=== PATIENT | male | born 1945 | race Caucasian/White ===

== ENCOUNTER 2017-07-01 10:56 | Emergency (ER) | payer MEDICARE ==
[~2017-07-01] VITALS: Ht 182.9 cm; Wt 82.0 kg
[2017-07-01] MEDS ORDERED: ASPI81CH CHEW (11:10)
[2017-07-01] MEDS ORDERED: SIMV20TA PO (11:10)
[2017-07-01] MEDS ORDERED: METF500T PO (11:10)
[2017-07-01] MEDS ORDERED: LISI10TA3 PO (11:10)
[2017-07-01 11:11] VITALS: BP 151/87; PULSE 100; RESP 16; TEMP 98.2; O2SAT 98
--- NOTE | 2017-07-01 11:29 | PD ---
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 Patient states she's been diagnosed with PVCs in the past but he felt that his heart was racing a long and decided to stop today and check his pulse which was in the 140s. He took beta blockers prescribed by a associate trainer which is [place] for [place]Cs and he stated the symptom limited him down but he decided to come in and be seen anyways. Patient states that he has had some neck fullness during this episode which is currently resolved. Symptoms started just prior to arrival. He also took 5 baby aspirin prior to arrival. Does not have a history of atrial fibrillation, he had an echocardiogram and a stress test a year and a half ago which was normal. Denies any acute chest pain. Denies any nausea vomiting. PFSH Past Medical History Narrative Medical Hypercholesterol, hypertension, diabetes Diabetes: No (TAKES METFORMIN) Past Surgical History Narrative Surgical Tonsillectomy, laminectomy Social History Tobacco Use: No Allergies-Medications (Allergen,Severity, Reaction): Coded Allergies: ibuprofen (Verified Allergy, Mild, Rash, 07/01/17) Reported Meds & Prescriptions Reported Meds & Active Scripts Active Reported Aspirin 81 Mg Chew 81 Mg CHEW DAILY Metformin (Metformin HCl) 500 Mg Tab 500 Mg PO DAILY With a meal Simvastatin 20 Mg Tab 20 Mg PO DAILY Lisinopril 10 Mg Tab 10 Mg PO DAILY Review of Systems Except as stated in HPI: all other systems reviewed are Neg Physical Exam Narrative GENERAL: Well-developed well-nourished no obvious distress SKIN: Focused skin assessment warm/dry. HEAD: Atraumatic. Normocephalic. EYES: Pupils equal and round. No scleral icterus. No injection or drainage. ENT: No nasal bleeding or discharge. Mucous membranes pink and moist. NECK: Trachea midline. No JVD. CARDIOVASCULAR: Regular rate and rhythm 2+ bilateral equal pulses in all 4 extremity's.. No murmur appreciated. RESPIRATORY: No accessory muscle use. Clear to auscultation. Breath sounds equal bilaterally. GASTROINTESTINAL: Abdomen soft, non-tender, nondistended. Hepatic and splenic margins not palpable. MUSCULOSKELETAL: No obvious deformities. No clubbing. No cyanosis. No edema. NEUROLOGICAL: Awake and alert. No obvious cranial nerve deficits. Motor grossly within normal limits. Normal speech. PSYCHIATRIC: Appropriate mood and affect; insight and judgment normal. Data Data Last Documented VS Vital Signs Date Time Temp Pulse Resp B/P (MAP) Pulse Ox O2 Delivery O2 Flow Rate FiO2 07/01/17 14:07 07/01/17 13:48 60 16 98 Room Air 07/01/17 11:11 98.2 Orders Orders Ckmb (Isoenzyme) Profile (07/01/17 11:28) Complete Blood Count With Diff (07/01/17 11:28) Comprehensive Metabolic Panel (07/01/17 11:28) Magnesium (Mg) (07/01/17 11:28) Prothrombin Time / Inr (Pt) (07/01/17 11:28) Act Partial Throm Time (Ptt) (07/01/17 11:28) Troponin I (07/01/17 11:28) Chest, Single Ap (07/01/17 11:28) Ecg Monitoring (07/01/17 11:28) Iv Access Insert/Monitor (07/01/17 11:28) Oximetry (07/01/17 11:28) Oxygen Administration (07/01/17 11:28) Sodium Chloride 0.9% Flush (Ns Flush) (07/01/17 11:30) CKMB (07/01/17 11:30) CKMB% (07/01/17 11:30) Troponin I (07/01/17 13:01) Ckmb (Isoenzyme) Profile (07/01/17 13:01) Ed Discharge Order (07/01/17 13:55) Electrocardiogram (07/01/17 11:05) Labs Laboratory Tests Test 07/01/17 11:30 07/01/17 13:07 White Blood Count 5.6 TH/MM3 Red Blood Count 5.32 MIL/MM3 Hemoglobin 16.3 GM/DL Hematocrit 48.1 % Mean Corpuscular Volume 90.5 FL Mean Corpuscular Hemoglobin 30.6 PG Mean Corpuscular Hemoglobin Concent 33.8 % Red Cell Distribution Width 13.3 % Platelet Count 103 TH/MM3 Mean Platelet Volume 9.1 FL Neutrophils (%) (Auto) 58.6 % Lymphocytes (%) (Auto) 27.7 % Monocytes (%) (Auto) 10.9 % Eosinophils (%) (Auto) 1.9 % Basophils (%) (Auto) 0.9 % Neutrophils # (Auto) 3.3 TH/MM3 Lymphocytes # (Auto) 1.5 TH/MM3 Monocytes # (Auto) 0.6 TH/MM3 Eosinophils # (Auto) 0.1 TH/MM3 Basophils # (Auto) 0.1 TH/MM3 CBC Comment DIFF FINAL Differential Comment Prothrombin Time 10.3 SEC Prothromb Time International Ratio 0.9 RATIO Activated Partial Thromboplast Time 24.9 SEC Blood Urea Nitrogen 25 MG/DL Creatinine 1.40 MG/DL Random Glucose 104 MG/DL Total Protein 7.0 GM/DL Albumin 3.8 GM/DL Calcium Level 9.1 MG/DL Magnesium Level 2.4 MG/DL Alkaline Phosphatase 65 U/L Aspartate Amino Transf (AST/SGOT) 22 U/L Alanine Aminotransferase (ALT/SGPT) 29 U/L Total Bilirubin 0.4 MG/DL Sodium Level 141 MEQ/L Potassium Level 4.0 MEQ/L Chloride Level 106 MEQ/L Carbon Dioxide Level 28.5 MEQ/L Anion Gap 7 MEQ/L Estimat Glomerular Filtration Rate 50 ML/MIN Total Creatine Kinase 222 U/L 195 U/L Creatine Kinase MB 4.4 NG/ML Troponin I LESS THAN 0.02 NG/ML LESS THAN 0.02 NG/ML MDM Medical Decision Making Medical Screen Exam Complete: Yes Emergency Medical Condition: Yes Interpretation(s) EKG shows atrial fibrillation with an overall rate of 88, normal axis normal R- wave progression. No concerning ST segment changes. This an abnormal rhythm EKG otherwise non-ischemic. Differential Diagnosis Atrial fibrillation, arrhythmia, palpitations, ACS. Narrative Course patient roomed emergency department, EKG was performed in triage prior to me seeing him showing atrial fibrillation. Bedtime I've arrived in the room patient is now sinus rhythm at a rate of 60-70. He appears well and in no distress. Basic labs ordered. Patient's symptoms started about 945 this morning, for that reason 2 sets of cardiac enzymes were sent in the emergency department, both were negative. I discussed with the patient that given his new onset atrial fibrillation which is now controlled and has spontaneous he converted to sinus rhythm he needs consideration for repeat stress test. The patient states that he would like to follow-up with his own associate trainer and has been able to call him over the phone and arrange for a follow-up on Wednesday. I discussed with the patient that there is some risk for missing ACS in him and recommended very close follow-up and he was offered admission to the hospital but stated he would like to go home. He will continue taking 2 baby aspirin a day, metoprolol as needed, lisinopril as needed. Discussed also needs to consider admission for anticoagulation given his chads score is 2. He states he would like to go home and discussed this with his associate trainer first. I think all this is reasonable. I discussed all the risks of a dresser's cardiac event and thromboembolic event given atrial fibrillation he verbalized understanding and agreement and wishes for discharge. Diagnosis Primary Impression: New onset a-fib Additional Impressions: Atrial fibrillation Qualified Codes: I48.91 - Unspecified atrial fibrillation Palpitations Disposition: 01 DISCHARGE HOME Condition: Stable Igor Gomez MD Jul 01, 2017 11:29
[2017-07-01] MEDS ORDERED: SODIUM CHLORIDE 0.9% FLUSH 10 ML FLUSH IVF PRN (11:30)
[2017-07-01 11:32] VITALS: RESP 16; O2SAT 98
[2017-07-01 11:39] VITALS: BP 112/73; PULSE 64; RESP 18; O2SAT 98
[2017-07-01 11:52] LABS: AUTOMATED NEUTROPHIL # 3.3 TH/MM3 (1.8-7.7); BASOPHIL # 0.1 TH/MM3 (0-0.2); BASOPHIL % 0.9 % (0.0-2.0); EOSINOPHIL # 0.1 TH/MM3 (0-0.4); EOSINOPHIL % 1.9 % (0.0-4.0); HEMATOCRIT 48.1 % (39.0-51.0); HEMO FLAGS DIFF FINAL; LYMPH % 27.7 % (9.0-44.0); LYMPHOCYTE # 1.5 TH/MM3 (1.0-4.8); MEAN CELL VOLUME 90.5 FL (80.0-100.0); MEAN CORPUSCULAR HEMOGLOBIN 30.6 PG (27.0-34.0); MEAN CORPUSCULAR HGB CONC 33.8 % (32.0-36.0); MONO % 10.9 % (0.0-8.0); NEUT % 58.6 % (16.0-70.0); PLATELET COUNT 103 TH/MM3 (150-450); RED BLOOD COUNT 5.32 MIL/MM3 (4.50-5.90); RED CELL DISTRIBUTION WIDTH 13.3 % (11.6-17.2); WHITE BLOOD COUNT 5.6 TH/MM3 (4.0-11.0)
[2017-07-01 12:03] LABS: CHLORIDE 106 MEQ/L (98-107); SODIUM (NA) 141 MEQ/L (136-145)
[2017-07-01 12:04] LABS: APTT (PATIENT) 24.9 SEC (24.3-30.1); INTERNATIONAL NORMALIZED RATIO 0.9 RATIO; PROTHROMBIN TIME - PATIENT 10.3 SEC (9.8-11.6)
[2017-07-01 12:07] LABS: ANION GAP 7 MEQ/L (5-15); BICARBONATE 28.5 MEQ/L (21.0-32.0); BLOOD UREA NITROGEN 25 MG/DL (7-18); MAGNESIUM 2.4 MG/DL (1.5-2.5)
[2017-07-01 12:10] LABS: ALT (GPT) 29 U/L (12-78); AST (GOT) 22 U/L (15-37); GLOMERULAR FILTRATION RATE 50 ML/MIN (>89)
[2017-07-01 12:12] LABS: TOTAL BILIRUBIN ADULT 0.4 MG/DL (0.2-1.0)
[2017-07-01 12:13] LABS: ALKALINE PHOSPHATASE 65 U/L (45-117); CREATINE KINASE 222 U/L (39-308)
[2017-07-01 12:25] LABS: CKMB 4.4 NG/ML (0.5-3.6)
--- NOTE | 2017-07-01 12:39 | RADRPT ---
EXAM DATE/TIME: 07/01/2017 11:40 [facility] COMPARISON: No previous studies available for comparison. INDICATIONS : Patient states some chest discomfort and palpitations. MEDICAL HISTORY : cardiac arrhythmia SURGICAL HISTORY : None. ENCOUNTER: Initial ACUITY: 1 day PAIN SCORE: 2/10 LOCATION: Bilateral upper chest FINDINGS: A single view of the chest demonstrates the lungs to be symmetrically aerated without evidence of mas s, infiltrate or effusion. The cardiomediastinal contours are unremarkable. Osseous structures are intact. CONCLUSION: Normal examination. Rex García MD on July 01, 2017 at 12:37 Board Certified Radiologist. This report was verified electronically.
[2017-07-01 12:44] VITALS: BP 105/75; PULSE 60; RESP 20; O2SAT 97
[2017-07-01 13:40] LABS: CREATINE KINASE 195 U/L (39-308)
[2017-07-01 13:48] VITALS: BP 120/87; PULSE 60; RESP 16; O2SAT 98
--- NOTE | 2017-07-01 18:52 | EKG ---
Date Performed: 07/01/2017 Time Performed: 11:05:51 PTAGE: 71 years EKG: ATRIAL FIBRILLATION ABNORMAL RHYTHM ECG NO PREVIOUS TRACING DOCTOR: Xavier Lucero Interpretating Date/Time 07/01/2017 18:50:30
== END 2017-07-01 14:08 | disposition home or self-care (01) ==
LOC: PHED 10:56
DX: I48.91 Unspecified atrial fibrillation (principal); R00.2 Palpitations; R94.31 Abnormal electrocardiogram [ECG] [EKG]; I10 Essential (primary) hypertension; E11.9 Type 2 diabetes mellitus without complications; E78.00 Pure hypercholesterolemia, unspecified; Z79.84 Long term (current) use of oral hypoglycemic drugs
CPT/HCPCS: 71010; 80053; 82550; 82552; 83735; 84484; 85025; 85610; 85730; 93005; 99284